=== PATIENT | female | born 1980 | race Hispanic/Latino ===

== ENCOUNTER 2017-11-04 09:21 | Day surgery (SDC) | payer OTHER ==
[2017-11-04] MEDS ORDERED: Propofol 10 mg/ml Inj (20 ML) ONE (10:42)
[2017-11-04] MEDS ORDERED: Sodium Chloride 0.9% 1,000 ML IV SCH (11:15)
[2017-11-04 11:36] VITALS: PULSE 75
[2017-11-04 13:48] VITALS: BP 108/63; RESP 16; TEMP 98; O2SAT 100
== END 2017-11-04 12:40 | disposition home or self-care (01) ==
LOC: ENDO 09:21
PROVIDERS: ATTEND Internal Medicine
DX: K22.10 Ulcer of esophagus without bleeding (principal); K29.50 Unspecified chronic gastritis without bleeding; K44.9 Diaphragmatic hernia without obstruction or gangrene; Z98.84 Bariatric surgery status
CPT/HCPCS: 43239; 84703; 88305; 88342; J2704; J7040 ×2